=== PATIENT | female | born 1995 | race Caucasian/White ===

== ENCOUNTER 2021-12-31 06:45 | Inpatient (IN) ==
[2021-12-31 06:43] LABS: Basophils % 0.5 %; Eosinophils % 0.2 %; Hematocrit 32.5 % (35.3-44.9); Hemoglobin 11.4 g/dL (11.5-15.4); Immature Granulocytes % 0.5 % (0-4); Lymphocytes # 1.7 K/mcL (0.6-4.6); Lymphocytes % 27.1 %; Mean Corpuscular HGB Conc 35.1 g/dL (31.6-35.5); Mean Corpuscular Hemoglobin 33.2 pg (28.0-33.3); Mean Corpuscular Volume 94.8 fL (83.0-100.0); Mean Platelet Volume 9.4 fL (9.4-12.4); Monocytes # 0.6 K/mcL (0.0-1.3); Monocytes % 8.6 %; Platelet Count 146 K/mcL (140-400); Red Blood Count 3.43 M/mcL (3.82-4.97); Segmented Neutrophils % 63.1 %; White Blood Count 6.4 K/mcL (4.3-11.1)
[~2021-12-31 06:45] MED LIST: *HR* FentaNYL (PF) 100 MCG/2 ML VIAL IVP PRN; *HR* Nalbuphine 10 MG/ML AMPUL IV PRN; Azithromycin 500 MG in 0.9 % Sodium Chloride 250 ML IVPB PRN; EPHEDrine 50 MG/ML VIAL IVP PRN; Epidural Premix (fent/bupiv) 110 ML EP SCH; Famotidine 20 MG/2 ML VIAL IVP PRN; Lidocaine 1% 20 ML MDV INFILT PRN; Metoclopramide 10 MG/2 ML VIAL IVP PRN; Naloxone 0.4 MG/ML INJ IVP PRN; Ondansetron 4 MG/2 ML VIAL IVP PRN; Oxytocin 30 UNIT/503 ML BAG IVC ONE; Penicillin G Potassium 5,000,000 UNIT in 0.9 % Sodium Chloride Mini Bag 100 ML IVPB ONE; Ringers Solution, Lactated 1,000 ML IVC SCH; Ringers Solution, Lactated 1,000 ML ONE
[2021-12-31 08:37] LABS: Amphetamine Screen,Urine Negative ng/mL (Cutoff=1000); Barbiturate Screen,Urine Negative ng/mL (Cutoff=200); Benzodiazepines Screen,Urine Negative ng/mL (Cutoff=200); Cannabinoid Screen,Urine Negative ng/mL (Cutoff = 50); Cocaine Screen,Urine Negative ng/mL (Cutoff= 300); Opiate Screen,Urine Negative ng/mL (Cutoff=300); Phencyclidine Screen,Urine Negative ng/mL (Cutoff=25)
[2021-12-31] MEDS ORDERED: Penicillin G Potassium 2,500,000 UNIT/105 ML MLS IVPB SCH (10:00)
[2021-12-31] MEDS ORDERED: Oxytocin 30 UNIT/503 ML BAG IVC SCH ×2 (10:15→14:11)
[2021-12-31 12:59] LABS: Hepatitis B Surface Antigen Nonreactive (Nonreactive)
[2021-12-31] MEDS ORDERED: Benzocaine/Menthol 56 GM AEROSOL SPRAY TP PRN (14:11)
[2021-12-31] MEDS ORDERED: Lanolin 7 G OINT...G. TP PRN (14:11)
[2021-12-31] MEDS ORDERED: Ondansetron ODT 4 MG TAB.RAPDIS SL PRN (14:11)
[2021-12-31] MEDS: Acetaminophen 325 MG TABLET PO SCH ×2 (17:38→20:51)
[2021-12-31] MEDS: Ibuprofen 600 MG TABLET PO SCH ×3 (21:25→23:02)
[2022-01-01 05:15] VITALS: O2SAT 97
[2022-01-01 06:34] VITALS: BP 110/75; PULSE 54; TEMP 97.5
[2022-01-01] MEDS: Acetaminophen 325 MG TABLET PO SCH (08:36)
[2022-01-01] MEDS: Ibuprofen 600 MG TABLET PO SCH (08:36)
[2022-01-01] MEDS ORDERED: Prenatal Vit/FA 1 EACH TABLET PO SCH (09:00)
[2022-01-01] MEDS ORDERED: Calamine/Zinc oxide Lotion 120 ML BOTTLE TP PRN (10:46)
== END 2022-01-01 13:30 | disposition home or self-care (01) | DRG 807 ==
LOC: 1NENULAB → 1NENUOBS 16:39
PROVIDERS: ADMIT Obstetrics & Gynecology; ATTEND Obstetrics & Gynecology